=== PATIENT | male | born 1950 | race Caucasian/White ===

== ENCOUNTER → 2017-02-28 | Outpatient (CLI) | payer MEDICARE ==
--- NOTE | 2017-02-28 17:07 | KCIC ---
Five-view lumbar spine HISTORY: Severe low back pain radiating down the right leg with numbness for 2 weeks. FINDINGS: Vertebral body height is maintained. No evidence of acute fracture or bone destruction. Mild marginal spurring is identified compatible with spondylosis. No evidence of spondylolysis. No evidence of significant subluxation. IMPRESSION: No evidence of acute fracture or subluxation. Lumbar spondylosis. Electronically signed by: Collin Strickland MD (02/28/2017 5:04 PM) [id number]
== END | disposition home or self-care (01) ==
LOC: KCIC 15:57
PROVIDERS: ATTEND Physician Assistant Medical
DX: M47.26 Other spondylosis with radiculopathy, lumbar region (principal); M62.830 Muscle spasm of back; M54.41 Lumbago with sciatica, right side
CPT/HCPCS: 72110

== ENCOUNTER → 2017-03-16 | Outpatient (CLI) | payer MEDICARE ==
[~2017-03-16] MED LIST: ASPI-482 PO; ATOR20TA58 PO; CYCL10TA2 PO; GABA-586 PO; IOHEXOL 180 MG/ML 10 ML VIAL. ONE; LISI-334 PO; METF500T4 PO; OMEP20CA9 PO; ZOLP10TA4 PO; methylPREDNISolone ACETATE 40 MG/ML VIAL. ONE; methylPREDNISolone ACETATE 80 MG/ML VIAL. ONE
--- NOTE | 2017-03-16 22:32 | PAIN ---
DATE OF SERVICE: 03/16/2017 CHIEF COMPLAINT: Low back and right lower extremity pain. HISTORY OF PRESENT ILLNESS: This is a 67-year-old male who presents with history of pain since about 02/23/2017. He was helping a friend handling some isatu shingles on an uneven roof, picked up a large packet of shingles which was very heavy, about 50 pounds by his estimation and twisted to his right side causing significant pain in the low back radiating to the right lower extremity and posterior gluteus, thigh and calf as well as in the anterior thigh and lateral thigh. The patient reports of tingling in his feet, in all his toes, all the way down his leg. Now it is more of a sharp pain, is throbbing with numbness and radiation, intermittent in intensity, but always present, becoming worse with time. The patient has tried some chiropractic treatment, which he feels helps, also had some trigger point injections at his primary care physician's office, which helped temporarily as well. The patient has been doing some stretching and strengthening exercises on his own that his chiropractor has shown him which helps as well, but only by about 20%. The patient reports no loss of motor function, but significant fatigability in the right leg, worse with walking and standing, change in positions, is better with sitting or lying down and reports the pain is not awakening him from sleep at night, does not affect his bowel or bladder control, but does affect his ability to walk, favoring right lower extremity fairly significantly. The patient did have an MRI scan of lumbar spine showing some diffuse disk bulging with foraminal disk protrusion on the left at L5-S1 with moderate facet arthropathy and neural foraminal stenosis. The patient reports his disability rating from 0 to 10, 10 being the worst, is a 9 with family, home responsibilities, recreation, social activity, and self-care, 1 with sexual behavior and 1 with life support activities. The patient has been using an inversion table at home as well, which he feels is quite helpful and reports the pain has decreased significantly for about 10-15 minutes after he gets off of the table. Again, the patient reports no loss of motor function, but significant fatigability of the right leg with ambulation. PAST MEDICAL HISTORY: Significant for diabetes type 2, hypertension, arthritis, acid reflux, diverticulosis. PREVIOUS SURGERY: Include radial keratotomy and rhinoplasty. FAMILY HISTORY: Significant for diabetes only. SOCIAL HISTORY: The patient does not smoke, but does drink about 3 alcoholic drinks a week on average, is single, but engaged, lives locally in [place], [place]. REVIEW OF SYSTEMS: The patient's review of systems is positive for those items mentioned in history of present illness. All systems reviewed and otherwise negative. It is completed in full and well documented on the patient's chart. PHYSICAL EXAMINATION: VITAL SIGNS: Today, blood pressure is 133/95, pulse 111, respirations 20, temperature 98.7 degrees Fahrenheit, height is 5 feet 9 inches, weight is 179 pounds. GENERAL: This is awake, alert, oriented, appropriate, very pleasant demeanor. HEENT: Shows normocephalic, atraumatic. Extraocular movements are intact, symmetrical. Oral cavity, mucous membranes are moist and pink. Dentition is intact. NECK: Shows anterior throat supple without palpable lymphadenopathy noted. Swallow reflex is symmetrical. CHEST: Shows normal on inspection. Breath sounds are clear to auscultation bilaterally. HEART: Shows S1, S2 clear. No murmurs auscultated. ABDOMEN: Obese, soft, nontender, nondistended. No palpable organomegaly is noted. No rebound or guarding demonstrated. BACK: Shows a normal appearing thoracic kyphosis and lumbar lordotic curvature. No previous bruises, lesions, rashes or scars are noted. Lumbar paraspinous musculature shows some asymmetry on inspection. With palpation shows moderate tenderness bilaterally, but without atrophy or hypertrophy, which shows good rotation motion both laterally greater than 10 degrees right and left as well as extension greater than 10 degrees, forward flexion 45 degrees without difficulty or pain reported. No tenderness over the sacrum or sacroiliac regions over the spinous processes. EXTREMITIES: Lower extremities show deep tendon reflexes 2+ in the patellar, 1+ tendo calcaneus tendons. Motor exam is strong with 5/5 dorsiflexion, extension, quadriceps and hamstring flexion and symmetrical. Peripheral pulses are 2+ posterior tibial distribution. No peripheral edema is noted. Straight leg raise noted to be positive on the right at about 45 degrees, but negative on the left. Gaenslen's and Bud's maneuvers are negative bilaterally as well. The patient is able to stand, stand on his toes without significant difficulty or loss of balance, walks with a slight shuffling gait, appears to favor the right lower extremity to a mild extent, but not using any assistive devices to ambulate. The patient's skin shows warm and dry. Good turgor. No edema. No bruises, lesions, rashes or scars. IMPRESSION: 1. This is a 67-year-old male with approximate 3-1/2 week history of acute injury in the back with radicular pain in the right lower extremity is noted. 2. MRI scan of lumbar spine as noted. 3. Hypertension. 4. Diabetes. 5. Arthritis. PLAN: Options were discussed with the patient including conservative medical management, physical therapy, interventional techniques and like to pursue interventional techniques. We discussed a lumbar epidural steroid injection using description as well as anatomical models to describe the procedure. Risks were then discussed including, but not limited to bleeding, infection, possibility of epidural hematoma, subsequent neurologic compromise, dural puncture, headaches, spinal cord and/or nerve damage, side effects of steroid medication and poor results regarding pain control. The patient understands and wished to proceed. The patient will return to clinic in approximately 2 weeks for followup, was counseled on return appointment, activity level and side effects to be aware of. DIAGNOSES: Lumbar radiculopathy with lumbar degenerative disk disease and lumbar herniated disk. PROCEDURE: Lumbar epidural steroid injection in translaminar approach at L5-S1 level using C-arm fluoroscopic guidance under sterile prep and drape using local anesthetic. Medication injected is total of 120 mg Depo-Medrol plus 10 mL of preservative-free normal saline, 2 mL of Isovue for contrast. CONDITION AT DISCHARGE: Stable. The patient tolerated the procedure well, had no complications. EVELINA TREJO MD DR: PARVEEN/yuli JOB#: [id number] / [id number]
== END ==
LOC: PNCL 10:27
PROVIDERS: ATTEND Anesthesiology
DX: M51.16 Intervertebral disc disorders with radiculopathy, lumbar region (principal); I10 Essential (primary) hypertension; M19.90 Unspecified osteoarthritis, unspecified site; K21.9 Gastro-esophageal reflux disease without esophagitis; E11.9 Type 2 diabetes mellitus without complications
CPT/HCPCS: 62323; J1030; J1040

== ENCOUNTER → 2017-03-30 | Outpatient (CLI) | payer MEDICARE ==
--- NOTE | 2017-03-30 21:26 | PAIN ---
DATE OF SERVICE: 03/30/2017 DIAGNOSES: Lumbar radiculopathy with lumbar degenerative disk disease and lumbar herniated disk. HISTORY OF PRESENT ILLNESS: The patient is a 67-year-old male who returns for a followup status post lumbar epidural steroid injection x 1. The patient reports about 50% improvement overall with still some pain in the low back and right lower extremity, but much improved. The patient has been increasing his activity with greater ease and comfort, been sleeping better at night and increasing his daily activities with good decrease in pain. The patient reports still significant pain in the low back region, in the posterior gluteus, posterior thigh, posterior calf on the right side only; aching, dull, tingling, radiating, but only on and off. Now, the patient reports not there all the time like it was. The leg is doing much better than it had prior to the injection. The patient reports his pain is at 7-8 on a scale of 10 at its average, worst and its least and is a 7 today. The patient reports he sleeps about 6 hours at a time, occasionally awaken him from sleep, but not every night. He can usually reposition and get back to sleep. The patient reports no new motor or sensory deficits, no new bowel or bladder incontinence or other complaints. PHYSICAL EXAMINATION: VITAL SIGNS: Today, the patient's blood pressure is 140/102, pulse 107, respirations 18, temperature is 97.8 degrees Fahrenheit, weight is 182 pounds. GENERAL: The patient is awake, alert, oriented, appropriate, very pleasant demeanor. HEENT: Shows normocephalic, atraumatic. Extraocular movements are intact, symmetrical. Oral cavity shows mucous membranes moist and pink. Dentition is intact. NECK: Shows anterior throat supple without palpable lymphadenopathy noted. Swallow reflex is symmetrical. CHEST: Shows normal on inspection. Breath sounds are clear to auscultation bilaterally. HEART: S1, S2 clear. No murmurs auscultated. ABDOMEN: Soft, nontender, nondistended. No palpable organomegaly is noted. No rebound or guarding demonstrated. MUSCULOSKELETAL: Back shows spine grossly in the midline, normal-appearing thoracic kyphosis and lumbar lordotic curvature. Lumbar paraspinous muscle shows symmetrical on inspection, palpation shows some moderate tenderness in the low lumbar distribution, more on the right than the left, but without radiation, without trigger points. No tenderness over the sacrum or sacroiliac regions. The patient has good rotational motion both laterally as well as extension and flexion without difficulty. Lower extremities show deep tendon reflexes at 2+ in the patellar, 1+ tendo calcaneus tendons. Motor exam is strong with 5/5 dorsiflexion, extension, quadriceps and hamstring flexion and equal. Peripheral pulses are 1+ posterior tibia. No peripheral edema is noted. PLAN: Options were discussed with the patient. The patient's old chart was reviewed as his current medication regimen and updated. Current review of systems is updated today as well. We will proceed with a lumbar epidural steroid injection today with fluoroscopic guidance as the second in the series. Risks were again discussed including, but not limited to bleeding, infection, possibility of epidural hematoma, subsequent neurologic compromise, dural puncture, headaches, spinal cord and/or nerve damage, side effects of steroid medication and poor results regarding pain control. The patient understands and wished to proceed. The patient will return to the clinic in approximately 2 weeks for followup, was counseled on return appointment, activity level and side effects to be aware of. DIAGNOSES: Lumbar radiculopathy with lumbar degenerative disk disease, lumbar herniated disk. PROCEDURE: Lumbar epidural steroid injection, translaminar approach, L5-S1 level, using C-arm fluoroscopic guidance under sterile prep and drape using local anesthetic. MEDICATIONS INJECTED: A total of 120 mg of Depo-Medrol plus 10 mL of preservative-free normal saline and 2 mL of Isovue for contrast. CONDITION AT DISCHARGE: Stable. The patient tolerated procedure well, had no complications. EVELINA TREJO MD DR: PARVEEN/yuli JOB#: [id number] / [id number]
== END ==
LOC: PNCL 08:58
PROVIDERS: ATTEND Anesthesiology
DX: M51.16 Intervertebral disc disorders with radiculopathy, lumbar region (principal)
CPT/HCPCS: 62323; J1030; J1040

== ENCOUNTER → 2017-04-13 | Outpatient (CLI) | payer MEDICARE ==
--- NOTE | 2017-04-13 19:42 | PAIN ---
DATE OF SERVICE: 04/13/2017 DIAGNOSES: Lumbar radiculopathy with lumbar degenerative disk disease and lumbar herniated disk. HISTORY OF PRESENT ILLNESS: The patient is a 67-year-old male who returns for followup status post lumbar epidural steroid injections x 2. The patient reports about 60% improvement in the low back and right lower extremity. The patient reports still significant pain there, but increasing activity with greater ease and comfort, has been quite pleased with his progress. The pain is still there, but is much improved. He is sleeping through the night now without difficulties, increased his activity. The patient reports his pain is a 3-4 on a scale of 10 on average, is a 5 at its worst and 2 at its least and is a 2 today. The patient reports it is aching, dull, some tingling pain radiating from the low back and the posterior gluteus, posterior thigh, posterior calf and foot; again worse with walking, standing, changing positions; better with sitting down or lying down and not disturbing his sleep. The patient reports no new motor or sensory deficits, no new bowel or bladder incontinence or other complaints. PHYSICAL EXAMINATION: VITAL SIGNS: Today, the patient's blood pressure is 139/89, pulse is 78, respirations 18, temperature is 98.2 degrees Fahrenheit. Height is 5 feet 9 inches, weighs 175 pounds. GENERAL: The patient is awake, alert, oriented, appropriate, very pleasant demeanor. HEENT: Shows normocephalic, atraumatic. Extraocular muscles are intact and symmetrical. Oral cavity: Mucous membranes moist and pink. Dentition is intact. NECK: Shows anterior throat supple without palpable lymphadenopathy noted. Swallow reflex is symmetrical. CHEST: Shows normal with inspection. Breath sounds are clear to auscultation bilaterally. HEART: Shows S1, S2 clear. No murmurs auscultated. ABDOMEN: Soft, nontender, nondistended. No palpable organomegaly is noted. No rebound or guarding demonstrated. BACK: The patient's back shows spine grossly in midline. Lumbar paraspinous muscle shows symmetrical on inspection with palpation shows some moderate tenderness in the low lumbar distribution only without atrophy, hypertrophy without radiation of pain, no trigger points. The patient has full rotational motion of lumbar spine, both laterally as well as extension and flexion without difficulty. EXTREMITIES: Lower extremities show deep tendon reflexes 2+ in the patellar, 1+ tendo calcaneus tendons, are equal. Motor exam is strong with 5/5 dorsiflexion, extension, quadriceps and hamstring flexion and symmetrical as well. Peripheral pulses are 1+. No peripheral edema is noted. Options were discussed with the patient. The patient's old chart was reviewed as his current medication regimen and updated. Current review of systems is updated today as well. We will proceed with a lumbar epidural steroid injection as the third in the series with fluoroscopic guidance. Risks were again discussed including, but not limited to bleeding, infection, possibility of epidural hematoma and subsequent neurological compromise, dural puncture, headaches, spinal cord and/or nerve damage, side effects of steroid medication and poor results regarding pain control. The patient understands and wished to proceed. The patient to return to clinic in approximately 2 weeks for followup, was counseled on return appointment, activity level and side effects to be aware of. DIAGNOSES: Lumbar radiculopathy with lumbar degenerative disk disease, lumbar herniated disk. PROCEDURE: Lumbar epidural steroid injection, translaminar approach L5-S1 level using C-arm fluoroscopic guidance under sterile prep and drape using local anesthetic. MEDICATION INJECTED: A total of 120 mg Depo-Medrol plus 10 mL preservative-free normal saline and 2 mL of Isovue for contrast. CONDITION AT DISCHARGE: Stable. The patient tolerated procedure well, had no complications. EVELINA TREJO MD DR: PARVEEN/yuli JOB#: [id number] / [id number]
== END | disposition home or self-care (01) ==
LOC: PNCL 09:48
PROVIDERS: ATTEND Anesthesiology
DX: M51.16 Intervertebral disc disorders with radiculopathy, lumbar region (principal)
CPT/HCPCS: 62323; J1030; J1040